=== PATIENT | male | born 1985 | race Caucasian/White ===

== ENCOUNTER 2023-02-18 10:58 | Emergency (ER) | payer OTHER ==
[~2023-02-18] VITALS: Ht 175.3 cm; Wt 96.4 kg
[2023-02-18] MEDS ORDERED: KETOROLAC TROMETHAMINE 30 MG/ML VIAL IM ONE (11:15)
[2023-02-18 11:25] VITALS: BP 114/78; PULSE 91; RESP 15; TEMP 99.5
== END 2023-02-18 13:15 ==
LOC: EMS 11:16
DX: S42.401A Unspecified fracture of lower end of right humerus, initial encounter for closed fracture (principal); W18.39XA Other fall on same level, initial encounter; Y93.89 Activity, other specified; Y92.89 Other specified places as the place of occurrence of the external cause; Y99.8 Other external cause status
CPT/HCPCS: 99284; 29105; 73060; 73080; 73090; 96372; J1885